=== PATIENT | female | born 1980 | race Native Hawaiian/Other Pacific Islander ===

== ENCOUNTER 2022-06-13 12:22 | Emergency (ER) | payer OTHER ==
[~2022-06-13] VITALS: Ht 167.6 cm; Wt 81.6 kg
[2022-06-13 12:37] VITALS: BP 130/82; TEMP 98.2
== END 2022-06-13 14:20 | disposition home or self-care (01) ==
LOC: ED 12:22
DX: M54.12 Radiculopathy, cervical region (principal)
CPT/HCPCS: 93005; 99282; J1885